=== PATIENT | female | born 1955 | race Caucasian/White ===

== ENCOUNTER 2016-07-27 17:33 | Emergency (ER) | payer BC ==
--- NOTE | 2016-07-27 18:41 | UC ---
Respiratory Complaint HPI - HPI Summary HPI Summary: 60 YO FEMALE WITH COUGH X 1 WEEK SOME FEVER AND CHILLS PRODUCTIVE AT TIMES NO CP OR SOB NO N/V/D WHEEZES AT TIME...MOST NOTICEABLE AT NIGHT - History of Current Complaint Chief Complaint: UCRespiratory Stated Complaint: WHEEZING, AND COUGH Time Seen by Provider: 07/27/16 18:20 Hx Obtained From: Patient Onset/Duration: Gradual Onset, Lasting Weeks - 1 Timing: Constant Severity Initially: Mild Severity Currently: Moderate Pain Intensity: 1 Pain Scale Used: 0-10 Numeric Character: Cough: Productive Aggravating Factors: Exertion, Deep Breaths Alleviating Factors: Nothing Associated Signs And Symptoms: Positive: Fever, Chills, Wheezing - Allergies/Home Medications Allergies/Adverse Reactions: Allergies Allergy/AdvReac Type Severity Reaction Status Date / Time Amoxicillin Allergy Unknown Verified 07/27/16 17:51 Reaction Details Bupropion [From Wellbutrin] Allergy Tachycardia Verified 07/27/16 17:51 Nadolol Allergy Hallucinati Verified 07/27/16 17:51 ons--NIGHTM URIEL ENVIRONMENTAL Allergy Congestion Uncoded 12/19/15 15:39 Home Medications: Home Medications Benzonatate CAP* [Tessalon 100 MG CAP*] 100 mg PO DAILY PRN 07/27/16 [History Confirmed 07/27/16] Clobetasol 0.05% OINT* 1 applic TOPICAL DAILY 07/27/16 [History Confirmed ] Ranitidine HCl [Zantac 75] 75 mg PO BID PRN 07/27/16 [History Confirmed 07/27/16 ] Valacyclovir HCl [Valtrex] 500 mg PO BID 07/27/16 [History Confirmed 07/27/16] PMH/Surg Hx/FS Hx/Imm Hx Previously Healthy: Yes Endocrine History Of: Reports: Thyroid Disease - GRAVES DISEASE Cardiovascular History Of: Denies: Pacemaker/ICD Respiratory History Of: Reports: Asthma - SLIGHT SINCE CHILDHOOD Psychological History Of: Reports: Anxiety - NEEDED MED, Depression - AFTER 11 YEARS AGO Cancer History Of: Denies: Breast Cancer - Surgical History Surgical History: Yes Surgery Procedure, Year, and Place: 2008, RIGHT CATARACT, [facility]. LEFT EYE- [facility]. LUIS ANGEL BREAST AUGMENTATION, 2011, [facility]. RIGHT FOOT, 2005, [facility]. finger surgery for fracture - Family History Known Family History: Positive: Hypertension - Social History Alcohol Use: Daily Alcohol Amount: 1-2 GLASSES OF DAVIE DAILY Substance Use Type: None Smoking Status (MU): Never Smoked Tobacco - Immunization History Most Recent Influenza Vaccination: fall 2015 Review of Systems Constitutional: Fever, Chills Skin: Negative Eyes: Negative ENT: Negative Respiratory: Cough Cardiovascular: Negative Gastrointestinal: Negative Genitourinary: Negative Motor: Negative Neurovascular: Negative Musculoskeletal: Negative Neurological: Negative Psychological: Negative All Other Systems Reviewed And Are Negative: Yes Physical Exam Triage Information Reviewed: Yes Appearance: Well-Appearing, No Pain Distress, Well-Nourished Vital Signs: Initial Vital Signs Temp 99.0 F 07/27/16 17:51 Pulse 84 07/27/16 17:51 Resp 16 07/27/16 17:51 BP 185/76 07/27/16 17:51 Pulse Ox 100 07/27/16 17:51 Vital Signs Reviewed: Yes Eyes: Positive: Conjunctiva Clear ENT: Positive: Hearing grossly normal. Negative: Nasal congestion, Nasal drainage, TMs normal, TM bulging, Tonsillar exudate, Trismus, Muffled/hoarse voice Neck: Positive: Supple, Nontender Respiratory: Positive: No respiratory distress, No accessory muscle use, Crackles - RIGHT BASE, Wheezing Cardiovascular: Positive: RRR, No Murmur Musculoskeletal: Positive: ROM Intact, No Edema Neurological: Positive: Alert Psychological Exam: Normal Skin Exam: Normal UC Diagnostic Evaluation - Laboratory O2 Sat by Pulse Oximetry: 100 Respiratory Course/Dx - Course Course Of Treatment: CXR (-) - Differential Dx/Diagnosis Provider Diagnoses: ACUTE BRONCHITS WITH BRONCHOSPASM Discharge - Discharge Plan Condition: Stable Disposition: HOME Prescriptions: Azithromycin TAB* [Zithromax TAB*] 250 mg PO DAILY #6 tab Patient Education Materials: Acute Bronchitis (ED) Referrals: Gilberto Mckinnon MD [Primary Care Provider] - 3 Days (RECHECK IN 3-4 DAYS IF NOT BETTER) Additional Instructions: USE INHALER DIRECTED ALBUTEROL MDI 2 PUFFS 4X DAY FOR 5-7 DAYS THEN NEEDED FOR WHEEZING RECHECK FOR NEW OR WORSENING SYMPTOMS
--- NOTE | 2016-07-27 18:48 | RAD ---
INDICATION: Weakness. Rales. COMPARISON: None TECHNIQUE: PA and lateral dual-energy views were obtained. FINDINGS: Bones/Soft Tissues: There are no acute bony findings. There are bilateral breast implants. Cardiomediastinal: The cardiomediastinal silhouette is normal. Lungs: There are no infiltrates. Pleura: There are no pleural effusions. Other: None IMPRESSION: NO ACTIVE DISEASE
[2016-07-27] MEDS ORDERED: Albuterol HFA INHALER* 8 gm MDI INH ONE (19:08)
[2016-07-27 19:27] VITALS: BP 167/69
== END 2016-07-27 19:27 | disposition home or self-care (01) ==
LOC: UCEAST 17:33
DX: J20.9 Acute bronchitis, unspecified (principal); Z88.0 Allergy status to penicillin; F41.9 Anxiety disorder, unspecified
CPT/HCPCS: 71020; 99213; A9270-GY; G0463

== ENCOUNTER 2017-07-12 08:09 | Emergency (ER) | payer BC ==
[2017-07-12] MEDS ORDERED: NS 0.9% 1000 ML* 1,000 ML IV ONE (08:25)
[2017-07-12 08:46] LABS: ABS Basophils 0 10^3/ul (0-0.2); ABS Eosinophils 0.2 10^3/ul (0-0.6); ABS Lymphocytes 1.4 10^3/ul (1.0-4.8); ABS Monocytes 0.7 10^3/ul (0-0.8); ABS Neutrophils 5.5 10^3/ul (1.5-7.7); ABS Nucleated RBC 0 10^3/ul; Eosinophil % 2.6 % (0-6); Hematocrit 40 % (35-47); Hemoglobin 13.4 g/dl (12.0-16.0); Lymphocyte % 17.8 % (25-47); Mean Corpuscular HGB Conc 34 g/dl (31-36); Mean Corpuscular Hemoglobin 27 pg (27-31); Mean Corpuscular Volume 80 fL (80-97); Mean Platelet Volume 7.4 um3 (7.4-10.4); Nucleated Red Blood Cells % 0; Platelet Count 235 10^3/ul (150-450); Red Blood Count 4.94 10^6/ul (4.0-5.4); Red Cell Distribution Width 13 % (10.5-15); White Blood Count 7.8 10^3/ul (3.5-10.8)
[2017-07-12 08:58] LABS: EGFR Non-African American 85.9 (>60)
[2017-07-12] MEDS ORDERED: Iohexol 300* (CONTRAST) 10 ML SDV IV ONE (09:18)
[2017-07-12 10:27] LABS: Urine Appearance Clear; Urine Blood 1+ (Negative); Urine Color Straw; Urine Ketones Negative (Negative); Urine Protein Negative (Negative); Urine Specific Gravity 1.004 (1.010-1.030); Urine Urobilinogen Negative (Negative)
--- NOTE | 2017-07-12 11:26 | RAD ---
CLINICAL HISTORY: Lower abdominal pain COMPARISON: None TECHNIQUE: Multiple contiguous axial CT scans were obtained of the abdomen and pelvis after the administration of intravenous contrast. Coronal and sagittal multiplanar reformations are submitted for review. FINDINGS: LUNG BASES: The lung bases are clear. LIVER: The liver measures up to 18.4 cm in long axis. There are multiple low-attenuation hepatic parenchymal lesions, measuring simple fluid in attenuation consistent with multiple hepatic cysts. BILE DUCTS: There is no intrahepatic or extrahepatic biliary dilatation. GALLBLADDER: The gallbladder is normal, without pericholecystic inflammatory change. PANCREAS: The pancreas is normal, without mass or ductal dilatation. SPLEEN: Normal in size and appearance. UPPER GI TRACT: Evaluation of the gastrointestinal tract is limited by incomplete gastric distention. The upper GI tract is unremarkable. SMALL BOWEL AND MESENTERY: The small bowel is normal in contour, course, and caliber. There is no obstruction or dilatation. COLON: There are multiple diverticula of the sigmoid colon. There is mild stranding of the perisigmoid fat best seen on coronal image 68 and axial image 57. ADRENALS: Normal bilaterally. KIDNEYS: The kidneys are normal in shape, size, contour, and axis. There is no hydronephrosis or nephrolithiasis. BLADDER: The bladder is incompletely distended but is grossly normal. PELVIC ORGANS: The uterus and adnexa are grossly normal for technique. AORTA: The aorta is normal. IVC: Unremarkable LYMPH NODES: There is no lymphadenopathy by size criteria. ABDOMINAL WALL: There is no evidence for abdominal wall hernia. BONES AND SOFT TISSUES: There are mild diffuse degenerative changes. OTHER: None IMPRESSION: 1. SIGMOID DIVERTICULOSIS WITH MILD PERICOLONIC INFLAMMATORY CHANGE SUGGESTIVE OF EARLY DIVERTICULITIS. THERE IS NO LOCULATED FLUID COLLECTION TO SUGGEST ABSCESS. 2. BORDERLINE HEPATOMEGALY.
[2017-07-12] MEDS ORDERED: metroNIDAZOLE TAB* 250 MG PO ONE (11:34)
[2017-07-12] MEDS ORDERED: Ciprofloxacin 400MG IVPREMIX(* 400 MG/200 ML BAG IVPB ONE (11:34)
[2017-07-12 13:03] VITALS: BP 134/75
--- NOTE | 2017-07-13 10:03 | ED ---
Sage Thakkar Angela, scribed for Suraj Mackay MD on 07/12/17 at 0828 . Abdominal Pain/Female - HPI Summary HPI Summary: This pt is a 61 y/o female presenting to [facility] c/o left lower abdominal pain x3 days. Pt reports that for the last couple of weeks she has intermittent chills. She notes she started herself on Cipro. Pt states that her pain became worse yesterday. Pt describes her pain as non-radiating. She currently rates her pain 3/10 in severity. Pt's pain is mildly alleviated if she pushes on her abd. She additionally notes nausea. Denies fever, vomiting, diarrhea. Her last bowel movement was this morning. Pt states she feels constipated, having small bowel movements. PMHx includes diverticulitis, graves disease. Pt denies drug or tobacco use. She notes drinking 1-2 glasses of wine daily. Pt's last colonoscopy was 5 years ago. - History of Current Complaint Chief Complaint: EDAbdPain Stated Complaint: FLANK PAIN Hx Obtained From: Patient Onset/Duration: Lasting Days, Still Present Timing: Days Severity Currently: Severe Pain Intensity: 7 Pain Scale Used: 0-10 Numeric Location: Discrete At: LLQ Radiates: No Aggravating Factor(s): Nothing Alleviating Factor(s): Other: - pushing on abd Associated Signs and Symptoms: Positive: Nausea. Negative: Fever, Vomiting, Diarrhea Allergies/Adverse Reactions: Allergies Allergy/AdvReac Type Severity Reaction Status Date / Time amoxicillin Allergy See Comment Verified 07/12/17 08:25 bupropion [From Wellbutrin] Allergy Tachycardia Verified 07/12/17 08:25 nadolol Allergy Hallucinati Verified 07/12/17 08:25 ons ENVIRONMENTAL Allergy Congestion Uncoded 12/19/15 15:39 Home Medications: Home Medications Albuterol HFA INHALER* [Ventolin HFA Inhaler*] 2 puff INH Q4H PRN 07/12/17 [ History Confirmed 07/12/17] Aspirin EC TAB* [Ecotrin EC Low Dose 81 MG*] 162 mg PO DAILY 07/12/17 [History Confirmed 07/12/17] Budesonide Flexhaler 90 (NF) [Pulmicort Flexhaler 90 mcg/act (NF)] 2 puff INH BID 07/12/17 [History Confirmed 07/12/17] Cyanocobalamin TAB* [Vitamin B12 TAB*] 1,000 mcg PO DAILY 07/12/17 [History Confirmed 07/12/17] Cyclosporine 0.05% OPHTH (NF) [Restasis 0.05% OPHTH] 1 drop BOTH EYES DAILY 05/30 [History Confirmed 07/12/17] Estradiol VAGINAL TAB(NF) [Vagifem] 10 mcg VAGINAL .TWICE WEEKLY 07/12/17 [ History Confirmed 07/12/17] Lactobacillus Acidophilu (GG)* [Culturelle*] 1 cap PO DAILY 07/12/17 [History Confirmed 07/12/17] LoraTADine TAB(NF) [Claritin 10 MG TAB(NF)] 10 mg PO DAILY 07/12/17 [History Confirmed 07/12/17] PMH/Surg Hx/FS Hx/Imm Hx Endocrine/Hematology History: Reports: Hx Thyroid Disease - GRAVES DISEASE Cardiovascular History: Reports: Other Cardiovascular Problems/Disorders - 40 YEARS AGO- BLOOD CLOT TO EYE- UNSURE OF WHICH EYE- STATES FROM BCP Denies: Hx Pacemaker/ICD Respiratory History: Reports: Hx Asthma - SLIGHT SINCE CHILDHOOD Denies: Other Respiratory Problems/Disorders GI History: Reports: Hx Gastroesophageal Reflux Disease - ON MEDICATION FOR, Hx Hiatal Hernia - STATES IS SMALL, Other GI Disorders - DIVERTICULITIS-RECENTLY FINISHED MEDICATION FOR ON 12/15/15 Musculoskeletal History: Denies: Other Musculoskeletal History Sensory History: Reports: Hx Cataracts, Hx Contacts or Glasses - GLASSES Denies: Hx Hearing Aid Opthamlomology History: Reports: Hx Cataracts, Hx Contacts or Glasses - GLASSES Neurological History: Denies: Other Neuro Impairments/Disorders Psychiatric History: Reports: Hx Anxiety - NEEDED MED, Hx Depression - AFTER 11 YEARS AGO - Cancer History Hx Chemotherapy: No Hx Radiation Therapy: No - Surgical History Surgery Procedure, Year, and Place: 2008, RIGHT CATARACT, [facility]. [place] [facility] LUIS ANGEL BREAST AUGMENTATION, 2011, [facility], 2005, [facility]. finger surgery for fracture Hx Anesthesia Reactions: No Infectious Disease History: No Infectious Disease History: Reports: Hx Shingles Denies: Traveled Outside the [place] in Last 30 Days - Family History Known Family History: Positive: Cardiac Disease - mother, Hypertension - mother Family History: Mother: colon CA (diagnosed when she was 84 y/o) - Social History Alcohol Use: Daily Alcohol Amount: 1-2 GLASSES OF DAVIE DAILY Substance Use Type: Reports: None Hx Tobacco Use: No Smoking Status (MU): Never Smoked Tobacco Review of Systems Negative: Fever, Chills Eyes: Negative ENT: Negative Positive: Abdominal Pain, Nausea. Negative: Vomiting, Diarrhea Musculoskeletal: Negative Skin: Negative Neurological: Negative All Other Systems Reviewed And Are Negative: Yes Physical Exam - Summary Physical Exam Summary: VITAL SIGNS: Reviewed. GENERAL: Patient is a well-developed and nourished female who is lying comfortable in the stretcher. Patient is not in any acute respiratory distress. HEAD AND FACE: Normocephalic and atraumatic. EYES: PERRLA, EOMI x 2, No injected conjunctiva. EARS: Hearing grossly intact. Ear canals and tympanic membranes are WNL. MOUTH: Oropharynx within normal limits. NECK: Supple, trachea is midline, no adenopathy, no JVD. CHEST: Symmetric, no tenderness at palpation LUNGS: Clear to auscultation bilaterally. No wheezing or crackles. CVS: RRR, S1 and S2 present, no murmurs or gallops appreciated. ABDOMEN: Soft. Slight left lower quadrant tenderness. No signs of distention. Positive bowel sounds. No rebound no guarding, and no masses palpated. No abdominal bruit or pulsations. EXTREMITIES: FROM in all major joints, no edema, no cyanosis or clubbing. NEURO: Alert and oriented x 3. No acute neurological deficits. Speech is normal. SKIN: Dry and warm Triage Information Reviewed: Yes Vital Signs On Initial Exam: Initial Vitals Temp Pulse Resp BP Pulse Ox 98.2 F 88 18 166/66 98 07/12/17 08:14 07/12/17 08:14 07/12/17 08:14 07/12/17 08:14 07/12/17 08:14 Vital Signs Reviewed: Yes Diagnostics - Vital Signs Vital Signs Temp Pulse Resp BP Pulse Ox 07/12/17 08:14 98.2 F 88 18 166/66 98 - Laboratory Result Diagrams: 07/12/17 08:33 07/12/17 08:33 Lab Statement: Any lab studies that have been ordered have been reviewed, and results considered in the medical decision making process. - CT Abdomen/Pelvis CT CT Interpretation: No Acute Changes - IMPRESSION: 1. Sigmoid diverticulosis with mild pericolonic inflammatory change suggestive of early diverticulitis. There is no loculated fluid collection to suggest abscess. 2. Borderline hepatomegaly. Dr. Mackay has reviewed this radiology report. CT Interpretation Completed By: Radiologist - EKG 08:34 Cardiac Rate: NL EKG Rhythm: Sinus Rhythm - at 79 bpm EKG Interpretation: No STEMI. Re-Evaluation - Re-Evaluation First Eval Re-Evaluation Time: 11:44 Comment: I reviewed the lab and CT results with the pt. Pt will be discharged home. Abdominal Pain Fem Course/Dx - Course Course Of Treatment: This pt is a 61 y/o female presenting to [facility] c/o left lower abdominal pain x3 days. Pt reports that for the last couple of weeks she has intermittent chills. She notes she started herself on Cipro. Pt states that her pain became worse yesterday. Pt describes her pain as non-radiating. She currently rates her pain 3/10 in severity. Pt's pain is mildly alleviated if she pushes on her abd. She additionally notes nausea. Denies fever, vomiting, diarrhea. Her last bowel movement was this morning. Pt states she feels constipated, having small bowel movements. PMHx includes diverticulitis, graves disease. Pt denies drug or tobacco use. She notes drinking 1-2 glasses of wine daily. Pt's last colonoscopy was 5 years ago. Test results without any significant abnormalities except for glucose of 116, CRP of 34.93. Abdomen/ Pelvis CT shows 1. Sigmoid diverticulosis with mild pericolonic inflammatory change suggestive of early diverticulitis. There is no loculated fluid collection to suggest abscess. 2. Borderline hepatomegaly. In the ED course the pt was given IV fluids, Ciprofloxacin, and Flagyl. After these medications the pts symptoms have resolved. She is eating and drinking without any nausea or vomiting. Therefore she will be discharged to home with follow up from her PCP. I discussed all the findings and test results with the patient. All questions were answered to patient satisfaction. There were no further complaints or concerns. Pt will be discharged home with prescriptions for Flagyl and Ciprofloxacin. She is instructed to return to the ED for any worsening or new symptoms. Pt is hemodynamically stable, alert and oriented x3. - Diagnoses Provider Diagnoses: Diverticulitis Discharge - Sign-Out/Discharge Documenting (check all that apply): Discharge - discharge to home - Discharge Plan Condition: Stable Disposition: HOME Prescriptions: Ciprofloxacin TAB* [Cipro 500 MG TAB*] 500 mg PO BID #20 tab metroNIDAZOLE [Flagyl 500 MG TAB] 500 mg PO TID #30 tab Patient Education Materials: Diverticulitis (ED) Referrals: Gilberto Mckinnon MD [Primary Care Provider] - 3 Days Additional Instructions: Please follow up with your primary care provider. RETURN TO THE ED FOR ANY NEW OR WORSENING SYMPTOMS. The documentation as recorded by the Sage francisco Angela accurately reflects the service I personally performed and the decisions made by Thompson woo Walter, MD.
== END 2017-07-12 13:03 | disposition home or self-care (01) ==
LOC: ED 08:09
DX: K57.32 Diverticulitis of large intestine without perforation or abscess without bleeding (principal); E05.00 Thyrotoxicosis with diffuse goiter without thyrotoxic crisis or storm; J45.909 Unspecified asthma, uncomplicated; K21.9 Gastro-esophageal reflux disease without esophagitis; Z79.899 Other long term (current) drug therapy
CPT/HCPCS: 36415; 74177; 80053; 81003; 81015; 83690; 85025; 86140; 87086; 93005; 96365; 99283; A9270-GY; J0744; Q9967

== ENCOUNTER 2017-07-15 15:37 | Emergency (ER) | payer BC ==
[2017-07-15 16:11] VITALS: BP 158/84
--- NOTE | 2017-07-15 18:52 | UC ---
Headache HPI - HPI Summary HPI Summary: Patient is a 61-year-old female presenting to the with the chief complaint of intermittent headache, worse after taking her Cipro and Flagyl for her left lower quadrant pain which was recently diagnosed as diverticulitis 3 days ago. She was seen in the ED and given Cipro and Flagyl at that time with a mild headache and feeling ill following the medication. Over the past 3 days she endorses worsening headache 30-40 minutes following taking her Flagyl and Cipro. She states the headache is worse when taking them together, but still present when taking them apart. Worst headache rated at 8 or 9 out of 10. Not sudden in onset. Denies taking blood thinners. Denies any blurry or double vision. - History Of Current Complaint Chief Complaint: UCHeadache Stated Complaint: HEADACHE Time Seen by Provider: 07/15/17 17:14 Hx Obtained From: Patient ?: No Onset/Duration: Sudden Onset, Lasting Hours Onset Of Symptoms: Gradual Initially Headache Was: Initial Pain Scale(0-10)= - 8 Currently Pain Is: Current Pain Scale(0-10)= - 4 Pain Intensity: 0 Pain Scale Used: 0-10 Numeric Timing: Intermittent, Lasting: - 4 hours Character: Throbbing Allevating Factor(s): Nothing Associated Signs And Symptoms: Positive: Negative - Risk Factors SAH Risk Factors: Negative Meningitis Risk Factors: Negative SDH Risk Factors: Negative Temporal Arteritis Risk Factors: Negative - Allergies/Home Medications Allergies/Adverse Reactions: Allergies Allergy/AdvReac Type Severity Reaction Status Date / Time amoxicillin Allergy See Comment Verified 07/15/17 16:05 bupropion [From Wellbutrin] Allergy Tachycardia Verified 07/15/17 16:05 nadolol Allergy Hallucinati Verified 07/15/17 16:05 ons ENVIRONMENTAL Allergy Congestion Uncoded 07/15/17 16:05 PMH/Surg Hx/FS Hx/Imm Hx Previously Healthy: Yes - Surgical History Surgical History: Yes Surgery Procedure, Year, and Place: 2008, RIGHT CATARACT, [facility] [place]- [facility] [place]. LUIS ANGEL BREAST AUGMENTATION, 2011, [facility]. RIGHT FOOT, 2005, [facility] [place]. finger surgery for fracture - Family History Known Family History: Positive: Cardiac Disease - mother, Hypertension - mother Family History: Mother: colon CA (diagnosed when she was 84 y/o) - Social History Occupation: Employed Full-time Lives: With Family Alcohol Use: Daily Alcohol Amount: 1-2 GLASSES OF DAVIE DAILY Substance Use Type: None Smoking Status (MU): Never Smoked Tobacco - Immunization History Most Recent Influenza Vaccination: fall 2015 Review of Systems Constitutional: Negative Skin: Negative Eyes: Negative ENT: Negative Respiratory: Negative Cardiovascular: Negative Gastrointestinal: Abdominal Pain - LLQ - mild - since last week Motor: Negative Neurological: Headache Psychological: Negative Is Patient Immunocompromised?: No All Other Systems Reviewed And Are Negative: Yes Physical Exam Triage Information Reviewed: Yes Appearance: Well-Appearing, Well-Nourished Vital Signs: Initial Vital Signs Temp 99.4 F 07/15/17 16:03 Pulse 58 07/15/17 16:03 Resp 18 07/15/17 16:03 BP 158/84 07/15/17 16:03 Pulse Ox 98 07/15/17 16:03 Vital Signs Reviewed: Yes Eye Exam: Normal Eyes: Positive: Conjunctiva Clear Neck exam: Normal Neck: Positive: Supple, No Lymphadenopathy Respiratory: Positive: Chest non-tender, Lungs clear Cardiovascular Exam: Normal Cardiovascular: Positive: RRR Musculoskeletal Exam: Normal Musculoskeletal: Positive: Strength Intact Neurological Exam: Normal Psychological: Positive: Normal Response To Family, Age Appropriate Behavior Skin Exam: Normal Headache Course/Dx - Course Course Of Treatment: During the course of treatment, the patient is evaluated for headache. Headaches are worse after taking Cipro and Flagyl together for her diverticulitis. She has been on this medication for 3.5 days and is prescribed [address] of the abdomen shows pericolonic inflammatory changes with a possible early diverticulitis. Due to this as well as her worsening headaches after taking Cipro and Flagyl, she will be switched to third line Augmentin. This will be taken 3 times daily as according to up-to- date.I have discussed this with Dr. Cook who agrees to change the abx at this time and have her follow up with PCP. She will return for any worsening or changing symptoms. The GILLETTE could have been d/t alcohol use prior to starting the medication or becuase she drinks 1-2 glasses of wine daily and has not had any since the starting of the abx. I have explained to the patient she is able to pre-medicate with tylenol and should drink plenty of water. I have also encouraged her 5 year follow up colonoscopy due to her family history of colon cancer. She has an appointment with her PCP in 6 days. She is encouraged senna at bedtime for any constipation symptoms. She is okay with this plan and discharge and will return for any worsening headache. - Differential Dx/Diagnosis Differential Diagnosis/HQI/PQRI: Sinus Headache, Tension Headache, Other - medication reaction Provider Diagnoses: Medication reaction Discharge - Sign-Out/Discharge Documenting (check all that apply): Discharge - Discharge Plan Condition: Stable Disposition: HOME Prescriptions: Amoxicillin/Clavulanate TAB* [Augmentin TAB 875*] 875 mg PO BID #12 tab Referrals: Gilberto Mckinnon MD [Primary Care Provider] - Additional Instructions: Augmentin 3 times daily 4 days Please follow-up with your PCP If any symptoms worsen, return to the UC or go to the ED Drink plenty of water May medicate with Tylenol 650 mg for headaches - Billing Disposition and Condition Condition: STABLE Disposition: HOME
== END 2017-07-15 17:50 | disposition home or self-care (01) ==
LOC: UCEAST 15:37
DX: R10.32 Left lower quadrant pain (principal); R51 Headache; T37.3X5A Adverse effect of other antiprotozoal drugs, initial encounter; T36.8X5A Adverse effect of other systemic antibiotics, initial encounter; Y92.9 Unspecified place or not applicable; Z88.0 Allergy status to penicillin; Z88.8 Allergy status to other drugs, medicaments and biological substances
CPT/HCPCS: 99212; G0463

== ENCOUNTER 2017-08-08 10:37 | Emergency (ER) | payer BC, OTHER ==
[2017-08-08 11:55] LABS: ABS Basophils 0 10^3/ul (0-0.2); ABS Eosinophils 0.1 10^3/ul (0-0.6); ABS Lymphocytes 1.8 10^3/ul (1.0-4.8); ABS Monocytes 0.5 10^3/ul (0-0.8); ABS Neutrophils 3.4 10^3/ul (1.5-7.7); ABS Nucleated RBC 0 10^3/ul; Eosinophil % 1.8 % (0-6); Hematocrit 41 % (35-47); Hemoglobin 13.9 g/dl (12.0-16.0); Lymphocyte % 30.5 % (25-47); Mean Corpuscular HGB Conc 34 g/dl (31-36); Mean Corpuscular Hemoglobin 27 pg (27-31); Mean Corpuscular Volume 81 fL (80-97); Mean Platelet Volume 7.7 um3 (7.4-10.4); Nucleated Red Blood Cells % 0.1; Platelet Count 245 10^3/ul (150-450); Red Cell Distribution Width 13 % (10.5-15); White Blood Count 5.8 10^3/ul (3.5-10.8)
[2017-08-08 12:12] LABS: EGFR Non-African American 87.4 (>60)
[2017-08-08 12:15] LABS: Urine Appearance Clear; Urine Blood 1+ (Negative); Urine Color Straw; Urine Ketones Negative (Negative); Urine Protein Negative (Negative); Urine Specific Gravity 1.004 (1.010-1.030); Urine Urobilinogen Negative (Negative)
[2017-08-08] MEDS ORDERED: Iohexol 300* (CONTRAST) 10 ML SDV IV ONE (13:05)
--- NOTE | 2017-08-08 14:24 | RAD ---
INDICATION: Subacute LEFT lower quadrant pain. Recent diverticulitis. COMPARISON: July 12, 2017 CT TECHNIQUE: Multidetector CT images were obtained from the lung bases to the ischial tuberosities with 96 mL Omnipaque 300 IV and oral contrast. Multiplanar reformation. REPORT: Unremarkable visualized inferior thorax. Approximate 8 well circumscribed grossly water density hepatic lesions without change most consistent with benign cysts. No CT abnormality of the gallbladder. Negative for biliary dilatation. Unremarkable pancreas and spleen. Negative for CT abnormality of the upper GI, small bowel, appendix visualized overlying the RIGHT iliac vessels. Moderately severe diverticulosis of the sigmoid colon without findings of acute diverticulitis. Only trace free pelvic fluid. Negative for free air or hernias. Normal adrenal glands. Unremarkable kidneys with symmetric nephrograms and pyelograms. Unremarkable nondilated ureters. Largely decompressed urinary bladder limiting assessment without gross abnormality. Unremarkable anteverted uterus and adnexal regions. Negative for lymphadenopathy. Normal diameter abdominal aorta and iliac arteries. Physiologic distention of the IVC. Negative for suspicious osseous lesions. IMPRESSION: 1. Normal appendix documented. 2. Moderately severe diverticulosis of the sigmoid colon without findings of acute diverticulitis. Resolution of previous colonic wall thickening and perienteric inflammatory change at the sigmoid colon compared with the July 12, 2017 exam. Only trace free pelvic fluid. 3. Negative for obstructive uropathy.
--- NOTE | 2017-08-08 16:18 | RAD ---
Indication: LEFT pelvic pain. Comparison: CT abdomen of the same date. Technique: Transvaginal pelvic ultrasound. Report: 5.6 x 2.4 x 3.1 cm anteverted uterus. 1.8 x 1.6 x 1.6 cm myometrial fibroid at the posterior fundus with resulting impression on the endometrium. 5.6 mm endometrium. Trace fluid in the endometrial canal. Physiologic small volume of free pelvic fluid. 1.6 x 2.2 x 1.5 cm RIGHT ovary with documented vascular flow is unremarkable. 2.3 x 2.0 x 1.1 cm LEFT ovary is unremarkable. Documentation of blood flow in the LEFT ovary is limited with bowel gas limiting acoustic window. . No visualized extra ovarian adnexal region lesions evident. IMPRESSION: 1. 1.8 cm posterior fundal myometrial fibroid with resulting impression on the normal thickness endometrium. Trace fluid in the endometrial canal. 2. Physiologic small volume of free pelvic fluid. 3. Negative for ovarian enlargement or suspicious lesions. Normal blood flow documented at the RIGHT ovary. Documentation of blood flow at the LEFT ovary is limited with bowel gas limiting acoustic window. Given small size of the LEFT ovary ovarian torsion is very unlikely.
[2017-08-08 18:15] VITALS: BP 138/84
--- NOTE | 2017-08-17 08:54 | ED ---
Cleve Thakkar Tiffany, scribed for Butch Lopez MD on 08/08/17 at 1133 . Abdominal Pain/Female - HPI Summary HPI Summary: The patient is a 61 year old female presenting to [facility] accompanied by male friend complains of lower left abdominal pain since 07/28/17, worse since last night. Describes the pain as pressure and burning, is waxing and waning. Rates the pain 4/10 in severity. Symptoms aggravated by nothing and alleviated by nothing. Reports constipation, normal bowel movements that are sometimes slightly loose. Additionally states nausea, chills, headache, fever that began last night. Denies diarrhea, bloody stools, burning with urination, hematuria, vaginal bleeding, vaginal discharge. Patient diagnosed with diverticulitis on 07/12/17, given medication. Developed headache 4 days later so she went to Urgent Care, changed to Augmentin. Followed up with primary care provider on 07/21/17, diverticulitis cleared up. Saw PCP on 07/24/17 for sinus infection, started taking Augmentin again. 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 US with PCP scheduled on 08/29/17 but pain worsened so patient decided to come to ED. Has colonoscopy scheduled at end of August 2017. - History of Current Complaint Chief Complaint: EDAbdPain Stated Complaint: ABD PAIN Time Seen by Provider: 08/08/17 11:01 Hx Obtained From: Patient Hx Last Menstrual Period: Menopause Onset/Duration: Gradual Onset, Lasting Weeks - Since 07/28/17, Still Present, Worse Since - Last night Severity Currently: Moderate Pain Intensity: 4 Pain Scale Used: 0-10 Numeric Location: Discrete At: LUQ, Discrete At: LLQ Character: Burning, Other: - Pressure Aggravating Factor(s): Nothing Alleviating Factor(s): Nothing Associated Signs and Symptoms: Positive: Negative - Burning with urination, hematuria, Fever, Constipation, Nausea, Other: - normal bowel movements that are sometimes slightly loose, chills, headache. Negative: Blood in Stool, Vaginal Bleeding, Vaginal Discharge, Diarrhea Allergies/Adverse Reactions: Allergies Allergy/AdvReac Type Severity Reaction Status Date / Time amoxicillin Allergy See Comment Verified 08/08/17 10:42 bupropion [From Wellbutrin] Allergy Tachycardia Verified 08/08/17 10:42 nadolol Allergy Hallucinati Verified 08/08/17 10:42 ons ENVIRONMENTAL Allergy Congestion Uncoded 08/08/17 10:42 PMH/Surg Hx/FS Hx/Imm Hx Previously Healthy: No Endocrine/Hematology History: Reports: Hx Thyroid Disease - GRAVES DISEASE Denies: Hx Diabetes Cardiovascular History: Reports: Other Cardiovascular Problems/Disorders - 40 YEARS AGO- BLOOD CLOT TO EYE- UNSURE OF WHICH EYE- STATES FROM BCP Denies: Hx Hypertension, Hx Pacemaker/ICD Respiratory History: Reports: Hx Asthma - SLIGHT SINCE CHILDHOOD Denies: Other Respiratory Problems/Disorders GI History: Reports: Hx Gastroesophageal Reflux Disease - ON MEDICATION FOR, Hx Hiatal Hernia - STATES IS SMALL, Other GI Disorders - DIVERTICULITIS History: Reports: Other Problems/Disorders - Hx of UTI Musculoskeletal History: Denies: Other Musculoskeletal History Sensory History: Reports: Hx Cataracts, Hx Contacts or Glasses - GLASSES Denies: Hx Hearing Aid Opthamlomology History: Reports: Hx Cataracts, Hx Contacts or Glasses - GLASSES Neurological History: Denies: Other Neuro Impairments/Disorders Psychiatric History: Reports: Hx Anxiety - NEEDED MED, Hx Depression - AFTER 11 YEARS AGO - Cancer History Hx Chemotherapy: No Hx Radiation Therapy: No - Surgical History Surgery Procedure, Year, and Place: 2009, RIGHT CATARACT, [facility]. LEFT EYE- [facility]. LUIS ANGEL BREAST AUGMENTATION, 2011, [facility]. RIGHT FOOT, 2005, [facility]. finger surgery for fracture Hx Anesthesia Reactions: No Infectious Disease History: No Infectious Disease History: Reports: Hx Shingles - 2009 Denies: Traveled Outside the [place] in Last 30 Days - Family History Known Family History: Positive: Cardiac Disease - mother, Hypertension - mother Family History: Mother: colon CA (diagnosed when she was 84 y/o) - Social History Alcohol Use: Weekly Alcohol Amount: 1-2 GLASSES OF DAVIE DAILY Hx Substance Use: No Substance Use Type: Reports: None Hx Tobacco Use: No Smoking Status (MU): Never Smoked Tobacco Review of Systems Positive: Fever, Chills Negative: Erythema Negative: Sore Throat Negative: Chest Pain Negative: Shortness Of Breath, Cough Gastrointestinal: Negative - Blood in stools Positive: Abdominal Pain - lower left, Nausea, Other - Conspitation, normal bowel movements that are sometimes slightly loose. Negative: Vomiting, Diarrhea Genitourinary: Negative - Vaginal bleeding, vaginal discharge Negative: burning, dysuria, hematuria Negative: Myalgia, Edema Negative: Rash Neurological: Negative - Dizziness Positive: Headache All Other Systems Reviewed And Are Negative: Yes Physical Exam - Summary Physical Exam Summary: Constitutional: Well-developed, Well-nourished, Alert. (-) Distressed Skin: Warm, Dry HENT: Normocephalic; Atraumatic Eyes: Conjunctiva normal Neck: Musculoskeletal ROM normal neck. (-) JVD, (-) Stridor, (-) Tracheal deviation Cardio: Rhythm regular, rate normal, Heart sounds normal; Intact distal pulses; The pedal pulses are 2+ and symmetric. Radial pulses are 2+ and symmetric. (-) Murmur Pulmonary/Chest wall: Effort normal. (-) Respiratory distress, (-) Wheezes, (-) Rales Abd: Soft, Mild LLQ Tenderness, (-) Distension, (-) Guarding, (-) Rebound Musculoskeletal: (-) Edema Lymph: (-) Cervical adenopathy Neuro: Alert, Oriented x3 Psych: Mood and affect Normal Triage Information Reviewed: Yes Vital Signs On Initial Exam: Initial Vitals Temp Pulse Resp BP Pulse Ox 98.5 F 73 16 149/65 99 08/08/17 10:38 08/08/17 10:38 08/08/17 10:38 08/08/17 10:38 08/08/17 10:38 Vital Signs Reviewed: Yes Diagnostics - Vital Signs Vital Signs Temp Pulse Resp BP Pulse Ox 08/08/17 10:38 98.5 F 73 16 149/65 99 - Laboratory Lab Results: Lab Results 08/08/17 08/08/17 08/08/17 Range/Units 11:45 11:45 11:45 WBC 5.8 (3.5-10.8) 10^3/ul RBC 5.10 (4.0-5.4) 10^6/ul Hgb 13.9 (12.0-16.0) g/dl Hct 41 (35-47) % MCV 81 (80-97) fL MCH 27 (27-31) pg MCHC 34 (31-36) g/dl RDW 13 (10.5-15) % Plt Count 245 (150-450) 10^3/ul MPV 7.7 (7.4-10.4) um3 Neut % (Auto) 58.7 (38-83) % Lymph % (Auto) 30.5 (25-47) % [place] % (Auto) 8.6 H (0-7) % Eos % (Auto) 1.8 (0-6) % Baso % (Auto) 0.4 (0-2) % Absolute Neuts (auto) 3.4 (1.5-7.7) 10^3/ul Absolute Lymphs (auto) 1.8 (1.0-4.8) 10^3/ul Absolute Monos (auto) 0.5 (0-0.8) 10^3/ul Absolute Eos (auto) 0.1 (0-0.6) 10^3/ul Absolute Basos (auto) 0 (0-0.2) 10^3/ul Absolute Nucleated RBC 0 10^3/ul Nucleated RBC % 0.1 Sodium 136 L (139-145) mmol/L Potassium 4.0 (3.5-5.0) mmol/L Chloride 103 (101-111) mmol/L Carbon Dioxide 25 (22-32) mmol/L Anion Gap 8 (2-11) mmol/L BUN 13 (6-24) mg/dL Creatinine 0.68 (0.51-0.95) mg/dL Est GFR ( Amer) 112.4 (>60) Est GFR (Non-Af Amer) 87.4 (>60) BUN/Creatinine Ratio 19.1 (8-20) Glucose 108 H (70-100) mg/dL Lactic Acid 1.4 (0.5-2.0) mmol/L Calcium 9.7 (8.6-10.3) mg/dL Total Bilirubin 0.30 (0.2-1.0) mg/dL AST 18 (13-39) U/L ALT 19 (7-52) U/L Alkaline Phosphatase 61 (34-104) U/L Troponin I 0.00 (<0.04) ng/mL C-Reactive Protein 3.63 (< 5.00) mg/L Total Protein 7.5 (6.4-8.9) g/dL Albumin 4.6 (3.2-5.2) g/dL Globulin 2.9 (2-4) g/dL Albumin/Globulin Ratio 1.6 (1-3) Lipase 16 (11.0-82.0) U/L Urine Color Urine Appearance Urine pH (5-9) Ur Specific [place] (1.010-1.030) Urine Protein (Negative) Urine Ketones (Negative) Urine Blood (Negative) Urine Nitrate (Negative) Urine Bilirubin (Negative) Urine Urobilinogen (Negative) Ur Leukocyte Esterase (Negative) Urine WBC (Auto) (Absent) Urine RBC (Auto) (Absent) Urine Bacteria (Absent) Urine Glucose (Negative) 08/08/17 08/08/17 Range/Units 12:00 16:03 WBC (3.5-10.8) 10^3/ul RBC (4.0-5.4) 10^6/ul Hgb (12.0-16.0) g/dl Hct (35-47) % MCV (80-97) fL MCH (27-31) pg MCHC (31-36) g/dl RDW (10.5-15) % Plt Count (150-450) 10^3/ul MPV (7.4-10.4) um3 Neut % (Auto) (38-83) % Lymph % (Auto) (25-47) % Tr[place]ble % (Auto) (0-7) % Eos % (Auto) (0-6) % Baso % (Auto) (0-2) % Absolute Neuts (auto) (1.5-7.7) 10^3/ul Absolute Lymphs (auto) (1.0-4.8) 10^3/ul Absolute Monos (auto) (0-0.8) 10^3/ul Absolute Eos (auto) (0-0.6) 10^3/ul Absolute Basos (auto) (0-0.2) 10^3/ul Absolute Nucleated RBC 10^3/ul Nucleated RBC % Sodium (139-145) mmol/L Potassium (3.5-5.0) mmol/L Chloride (101-111) mmol/L Carbon Dioxide (22-32) mmol/L Anion Gap (2-11) mmol/L BUN (6-24) mg/dL Creatinine (0.51-0.95) mg/dL Est GFR ( Amer) (>60) Est GFR (Non-Af Amer) (>60) BUN/Creatinine Ratio (8-20) Glucose (70-100) mg/dL Lactic Acid 0.7 (0.5-2.0) mmol/L Calcium (8.6-10.3) mg/dL Total Bilirubin (0.2-1.0) mg/dL AST (13-39) U/L ALT (7-52) U/L Alkaline Phosphatase (34-104) U/L Troponin I (<0.04) ng/mL C-Reactive Protein (< 5.00) mg/L Total Protein (6.4-8.9) g/dL Albumin (3.2-5.2) g/dL Globulin (2-4) g/dL Albumin/Globulin Ratio (1-3) Lipase (11.0-82.0) U/L Urine Color Straw Urine Appearance Clear Urine pH 6.0 (5-9) Ur Specific [place] 1.004 L (1.010-1.030) Urine Protein Negative (Negative) Urine Ketones Negative (Negative) Urine Blood 1+ A (Negative) Urine Nitrate Negative (Negative) Urine Bilirubin Negative (Negative) Urine Urobilinogen Negative (Negative) Ur Leukocyte Esterase Negative (Negative) Urine WBC (Auto) Absent (Absent) Urine RBC (Auto) Trace(0-2/hpf) (Absent) Urine Bacteria Absent (Absent) Urine Glucose Negative (Negative) Result Diagrams: 08/08/17 11:45 08/08/17 11:45 Lab Statement: Any lab studies that have been ordered have been reviewed, and results considered in the medical decision making process. - CT Abd/Pel CT Interpretation Completed By: Radiologist - 1. Normal appendix documented. 2. Moderately severe diverticulosis of the sigmoid colon without findings of acute diverticulitis. Resolution of previous colonic wall thickening and perienteric inflammatory change at the sigmoid colon compared with the July 12, 2017 exam. Only trace free pelvic fluid. 3. Negative for obstructive uropathy. ED physician has reviewed this report. - EKG 1655 Cardiac Rate: Bradycardia - at 53 BPM EKG Interpretation: no STEMI - Additional Comments Diagnostic Additional Comments: A Transvaginal US reveals, as per radiologist: 1. 1.8 cm posterior fundal myometrial fibroid with resulting impression on the normal thickness endometrium. Trace fluid in the endometrial canal. 2. Physiologic small volume of free pelvic fluid. 3. Negative for ovarian enlargement or suspicious lesions. Normal blood flow documented at the RIGHT ovary. Documentation of blood flow at the LEFT ovary is limited with bowel gas limiting acoustic window. Given small size of the LEFT ovary ovarian torsion is very unlikely. ED Physician has reviewed this report. Re-Evaluation - Re-Evaluation 1 Re-Evaluation Time: 16:55 Change: Worse - Pt c/o headache, nausea, and dizziness occuring earlier today. A EKG will be ordered and a Troponin will be obtained. Abdominal Pain Fem Course/Dx - Course Course Of Treatment: 61 year old female presenting to [facility] complains of lower left abdominal pain since 07/28/17, worse since last night. A CT A/P reveals non -acute diverticulosis. A Transvaginal US is indicitive of uterine fibroids. Lab results and Urine are unremarkable. - Diagnoses Provider Diagnoses: Fibroid, uterine, Abdominal pain Discharge - Sign-Out/Discharge Documenting (check all that apply): Discharge/Admit/Transfer - Discharge Plan Condition: Good Disposition: HOME Patient Education Materials: Abdominal Pain (ED), Myomectomy (DC) Referrals: Gilberto Mckinnon MD [Primary Care Provider] - Additional Instructions: Follow up with your OB in 2-3 days. RETURN TO THE EMERGENCY DEPARTMENT FOR CHANGING OR WORSENING SYMPTOMS. - Billing Disposition and Condition Condition: GOOD Disposition: HOME The documentation as recorded by the Cleve francisco Tiffany accurately reflects the service I personally performed and the decisions made by , Butch Lopez MD.
== END 2017-08-08 18:16 | disposition home or self-care (01) ==
LOC: ED 10:37
DX: D25.9 Leiomyoma of uterus, unspecified (principal); R10.32 Left lower quadrant pain; E05.00 Thyrotoxicosis with diffuse goiter without thyrotoxic crisis or storm
CPT/HCPCS: 36415; 74177; 76830; 80053; 81003; 81015; 83605; 83690; 84484; 85025; 86140; 87040; 93005; 96374; 99282; Q9967

== ENCOUNTER → 2018-03-22 05:53 | Day surgery (SDC) | payer BC ==
[~2018-03-22 05:53] MED LIST: Acetaminophen IV 1GM/100ML * 1,000 MG/100 ML VIAL IVPB ONE; Bacitracin IV* 50,000 UNITS INJ ONE; Buffered Lidocaine 0.9% SYRIN* 5 ML/SYR SYRINGE INTRADERM ONE; Bupivacaine 0.25% EPI 200,000* 30 ML SDV ONE; Clindamycin 900 MG/D5W BAG(*) 900 MG/50 ML BAG IVPB ONE; Dexamethasone IV* 4 MG/ML 1 ML (4 MG) ONE; DiMENhydriNATE IV* 50 MG/ML VIAL IV PUSH PRN; EPINEPHRINE 1 MG/ML 1 ML VIAL ONE; Gentamicin ADULT (*) 40 MG/ML VIAL ONE; Glycopyrrolate IV* 0.2 MG/ML 1 ML VIAL ONE; HYDROcodone/ACETAMIN 5-325 MG* 1 TAB ONE; Heparin VIAL(*) 5000 UNITS/ML VIAL (FIVE THOUSAND) ONE; Ibuprofen TAB* 400 MG ONE; Lidocaine 2% PF * 5 ML VIAL ONE; Lidocaine 2% PF* 10 ML AMP ONE; Midazolam* 1 MG/ML 2 ML VIAL (2 MG) ONE; Naloxone* 0.4 MG/ML 1 ML VIAL IV PRN; Neostigmine Methylsulfate* 2 MG/2 ML SYRINGE ONE; Ondansetron INJ* 2 MG/ML VIAL ONE; Povidone Iodine 5% OPTH* 30 ML BTL ONE; Propofol* 10 MG/ML 20 ML BTL ONE; Rocuronium* 10 MG/ML VIAL ONE; Scopolamine 1.5 mg* PATCH ONE; Sodium Bicarbonate 8.4% SYR* 10 ML SYRINGE ONE; Sodium Citrate/Citric Acid* 15 ML UDC ONE; Sodium Citrate/Citric Acid* 15 ML UDC PO ONE; ceFAZolin 1 GM VIAL(*) ONE; fentaNYL* 50 MCG/ML 2 ML VIAL (100 MCG VIAL) ONE
[2018-03-22] MEDS: fentaNYL* 50 MCG/ML 2 ML VIAL (100 MCG VIAL) IV PRN ×5 (11:27→12:00)
[2018-03-22 14:59] VITALS: BP 146/71
== END | disposition home or self-care (01) ==
LOC: OR 05:53
PROVIDERS: ATTEND Plastic Surgery
DX: T85.898A Other specified complication of other internal prosthetic devices, implants and grafts, initial encounter (principal); Y83.4 Other reconstructive surgery as the cause of abnormal reaction of the patient, or of later complication, without mention of misadventure at the time of the procedure; E05.00 Thyrotoxicosis with diffuse goiter without thyrotoxic crisis or storm
CPT/HCPCS: 88300; 88304; A9270-GY; J0690; J1100; J1580; J1644; J2001; J2250; J2405; J2704; J3010

== ENCOUNTER 2018-04-07 05:58 | Day surgery (SDC) | payer BC ==
[~2018-04-07 05:58] MED LIST changes: -Acetaminophen IV 1GM/100ML * 1,000 MG/100 ML VIAL IVPB ONE; -Bacitracin IV* 50,000 UNITS INJ ONE; -Bupivacaine 0.25% EPI 200,000* 30 ML SDV ONE; -Clindamycin 900 MG/D5W BAG(*) 900 MG/50 ML BAG IVPB ONE; -Dexamethasone IV* 4 MG/ML 1 ML (4 MG) ONE; -DiMENhydriNATE IV* 50 MG/ML VIAL IV PUSH PRN; -EPINEPHRINE 1 MG/ML 1 ML VIAL ONE; -Gentamicin ADULT (*) 40 MG/ML VIAL ONE; -Glycopyrrolate IV* 0.2 MG/ML 1 ML VIAL ONE; -HYDROcodone/ACETAMIN 5-325 MG* 1 TAB ONE; -Heparin VIAL(*) 5000 UNITS/ML VIAL (FIVE THOUSAND) ONE; -Ibuprofen TAB* 400 MG ONE; -Lidocaine 2% PF * 5 ML VIAL ONE; -Lidocaine 2% PF* 10 ML AMP ONE; -Midazolam* 1 MG/ML 2 ML VIAL (2 MG) ONE; -Naloxone* 0.4 MG/ML 1 ML VIAL IV PRN; -Neostigmine Methylsulfate* 2 MG/2 ML SYRINGE ONE; -Ondansetron INJ* 2 MG/ML VIAL ONE; -Povidone Iodine 5% OPTH* 30 ML BTL ONE; -Propofol* 10 MG/ML 20 ML BTL ONE; -Rocuronium* 10 MG/ML VIAL ONE; -Scopolamine 1.5 mg* PATCH ONE; -Sodium Bicarbonate 8.4% SYR* 10 ML SYRINGE ONE; -Sodium Citrate/Citric Acid* 15 ML UDC ONE; -Sodium Citrate/Citric Acid* 15 ML UDC PO ONE; -ceFAZolin 1 GM VIAL(*) ONE; -fentaNYL* 50 MCG/ML 2 ML VIAL (100 MCG VIAL) ONE
[2018-04-07] MEDS ORDERED: Lactated Ringers 1000 ML Bag* 1,000 ML IV SCH (06:00)
[2018-04-07] MEDS ORDERED: Dexamethasone IV* 4 MG/ML 1 ML (4 MG) ONE (06:14)
[2018-04-07] MEDS ORDERED: Ondansetron INJ* 2 MG/ML VIAL ONE (06:14)
[2018-04-07] MEDS ORDERED: Scopolamine 1.5 mg* PATCH ONE (06:15)
[2018-04-07] MEDS ORDERED: Clindamycin 900 MG/D5W BAG(*) 900 MG/50 ML BAG IVPB ONE (06:15)
[2018-04-07] MEDS ORDERED: fentaNYL* 50 MCG/ML 2 ML VIAL (100 MCG VIAL) ONE ×2 (07:24→08:53)
[2018-04-07] MEDS ORDERED: Midazolam* 1 MG/ML 2 ML VIAL (2 MG) ONE (07:24)
[2018-04-07] MEDS ORDERED: Lidocaine 2% PF * 5 ML VIAL ONE (07:24)
[2018-04-07] MEDS ORDERED: Propofol* 10 MG/ML 20 ML BTL ONE (07:24)
[2018-04-07] MEDS ORDERED: Famotidine IV* 10 MG/ML 2 ML (20 mg) ONE (07:27)
[2018-04-07] MEDS ORDERED: Bacitracin IV* 50,000 UNITS INJ ONE (07:33)
[2018-04-07] MEDS ORDERED: Gentamicin ADULT (*) 40 MG/ML VIAL ONE (07:33)
[2018-04-07] MEDS ORDERED: Ondansetron INJ* 2 MG/ML VIAL IV PRN (08:52)
[2018-04-07] MEDS ORDERED: Naloxone* 0.4 MG/ML 1 ML VIAL IV PRN (08:52)
[2018-04-07] MEDS: fentaNYL* 50 MCG/ML 2 ML VIAL (100 MCG VIAL) IV PRN ×2 (08:54→09:00)
[2018-04-07] MEDS ORDERED: HYDROcodone/ACETAMIN 5-325 MG* 1 TAB ONE (10:10)
[2018-04-07 10:11] VITALS: BP 149/72
--- NOTE | 2018-04-07 21:20 | OP ---
CC: Dr. Michele De León* OPERATIVE REPORT: DATE OF OPERATION: 04/07/18 - SDS DATE OF : 51 SURGEON: Dr. De León. ANESTHESIOLOGIST: Colt Angela DO ANESTHESIA: General. PRE-OP DIAGNOSIS: Hematoma, right breast. POST-OP DIAGNOSIS: Seroma, right breast. OPERATIVE PROCEDURE: Drainage of seroma, right breast. INDICATIONS: The patient is a 62-year-old female, status post bilateral augmentation mammoplasty with submuscular placement of silicone implants on . She has had multiple revisional procedures over the years and most recently underwent a right breast total capsulectomy and implant exchange for a ruptured right breast silicone gel implant as well as left breast implant exchange with [place] [phone] textured, round silicone gel implants on . She presents now with several-day history of swelling, firmness and tenderness in the right breast. Ultrasound of the right breast demonstrates fluid surrounding the right breast implant consistent with seroma or hematoma. Preoperative examination demonstrated moderate swelling, firmness and tenderness in the right breast. No erythema was noted. The right breast incision was noted to be healing well. ESTIMATED BLOOD LOSS: Minimal. SPECIMENS: None. DRAINS: One Azam-Hall. COMPLICATIONS: None. DESCRIPTION OF PROCEDURE: The patient was brought to the operating room and placed on the operating table in supine position. General anesthesia was induced by Dr. Angela. The breasts were prepped with ChloraPrep solution and draped sterilely. Incision was made through the right inframammary scar. Dissection was continued down through the subcutaneous tissues and the breast pocket entered. 150 cc of serous fluid was drained. No evidence of hematoma was noted. A 10 mm flat Azam- Hall drain was placed along the inferior aspect of the implant and brought out through a separate stab incision in the right lateral chest area and secured to the skin with 3-0 Prolene suture. The breast pocket was irrigated with a total of 1 L of saline, also containing 50, 000 units of bacitracin and 80 mg of gentamicin. Hemostasis was noted to be excellent. The wound was closed in layers using 3-0 Vicryl in the fascial and deep dermal closure and the skin closed with running subcuticular suture of 4-0 Monocryl and several interrupted sutures of 5-0 Vicryl Rapide. A VAC Prevena dressing was then applied and good seal verified. The patient tolerated the procedure well. There were no complications. All counts were reported as correct at the end of the procedure. The patient was taken to the recovery area in stable postoperative condition. [id number] #: [id number] MTDD
== END 2018-04-07 10:36 | disposition home or self-care (01) ==
LOC: OR 05:58
PROVIDERS: ATTEND Plastic Surgery
DX: L76.34 Postprocedural seroma of skin and subcutaneous tissue following other procedure (principal); J45.909 Unspecified asthma, uncomplicated; E89.0 Postprocedural hypothyroidism
CPT/HCPCS: A9270-GY; J1100; J1580; J2250; J2405; J2704; J3010